=== PATIENT | male | born 1965 | race Caucasian/White ===

== ENCOUNTER 2020-03-08 21:28 | Emergency (ER) | payer BC ==
[~2020-03-08] VITALS: Ht 188 cm; Wt 138.6 kg
[2020-03-08 21:36] VITALS: BP 144/109; TEMP 98
[2020-03-08] MEDS ORDERED: AMOXICILLIN 8751 TAB PO (22:59)
[2020-03-08 23:00] VITALS: PULSE 88
== END 2020-03-08 23:00 | disposition home or self-care (01) ==
LOC: COL.ER 21:28
DX: S61.451A Open bite of right hand, initial encounter (principal); W55.01XA Bitten by cat, initial encounter; Y92.009 Unspecified place in unspecified non-institutional (private) residence as the place of occurrence of the external cause
CPT/HCPCS: 90375

== ENCOUNTER 2020-03-22 13:38 | Outpatient (RCR) | payer BC ==
[~2020-03-22] VITALS: Ht 188 cm; Wt 136.4 kg
[~2020-03-22 13:38] MED LIST: AMOXICILLIN 8751 TAB PO
[2020-03-22 13:58] VITALS: BP 122/80; PULSE 91; TEMP 96.8
== END 2020-06-09 | disposition still patient (30) ==
LOC: COL.ER
DX: Z29.14 Encounter for prophylactic rabies immune globulin (principal); Z23 Encounter for immunization